=== PATIENT | female | born 1960 | race Caucasian/White ===

== ENCOUNTER 2020-11-28 10:39 | Emergency (ER) | payer OTHER, SELFPAY ==
--- NOTE | 2020-11-28 10:43 | ED.GENADULT ---
HPI - General Adult General Chief complaint: Dizziness Stated complaint: dizzy/nausea/[place] Time Seen by Provider: 11/28/20 10:55 Source: patient and RN notes reviewed Mode of arrival: ambulatory Limitations: no limitations History of Present Illness HPI narrative: 60-year-old female presents with concern for dizziness associated with nausea that started this morning. Reports dizziness is elicited by movement of her head, turning of the head, sitting up from a lying position. Reports she began to get a mild headache this morning after the dizziness began. Denies any thunderclap headache, weakness in any extremity, and numbness or tingling in any extremity, difficulty swallowing, difficulty speaking. Denies fever. MD complaint: Headache Related Data Home Medications Medication Instructions Recorded Confirmed atorvastatin 20 mg PO DAILY 11/28/20 11/28/20 hydrochlorothiazide 12.5 mg PO DAILY 11/28/20 11/28/20 lamotrigine 100 mg PO BID 11/28/20 11/28/20 lurasidone [Latuda] 20 mg PO DAILY 11/28/20 11/28/20 metformin 500 mg PO DAILY 11/28/20 11/28/20 omeprazole 40 mg PO DAILY 11/28/20 11/28/20 Allergies Allergy/AdvReac Type Severity Reaction Status Date / Time Penicillins Allergy Mild Rash Unverified 01/14/16 17:55 carbamazepine Allergy Unknown Hives Verified 11/28/20 11:00 penicillin G Allergy Unknown Hives Verified 11/28/20 11:00 phenobarbital Allergy Unknown Hives Verified 11/28/20 11:00 phenytoin Allergy Unknown Hives Verified 11/28/20 11:00 Sulfa (Sulfonamide Allergy Unknown Hives Verified 11/28/20 11:00 Antibiotics) hydromorphone AdvReac Unknown N/V Unverified 01/14/16 17:55 Review of Systems Review of Systems: Narrative: CONSTITUTIONAL: Denies malaise, chills, sweats, or fever. EYES: Denies visual changes, redness, or discharge. ENT: Denies rhinorrhea, congestion, sinus pain, otalgia or sore throat. CARDIOVASCULAR: Denies chest pain, palpitations, or edema. RESPIRATORY: Denies cough or dyspnea. GASTROINTESTINAL: Denies abdominal pain, vomiting, diarrhea. Reports nausea MUSCULOSKELETAL: Denies back pain or myalgia. NEUROLOGIC: Denies numbness, weakness. Reports positional dizziness and headache. All systems reviewed & are unremarkable except as noted in HPI and below [facility] Family History Family History (Updated 03/03/16 @ 23:19 by DOCTOR UNKNOWN) Mother Familial primary pulmonary hypertension Family history of diabetes mellitus in first degree relative Family history of malignant neoplasm of breast in first degree relative Sibling Carcinoma of colon Family history of diabetes mellitus in first degree relative Social History Social History Smoking status: Never smoker Alcohol intake: never Comments At time of signature, agree with nursing past medical, surgical, social and family history. There is no relevant family history pertinent to the presenting complaint Exam Narrative: Exam Narrative: GENERAL: Well-appearing, well-nourished, and in no acute distress. HEAD: Normocephalic, atraumatic. EYES: PERRLA, conjunctivae clear, and EOMI. no nystagmus ENT: Nares clear, turbinates pink, no rhinorrhea or epistaxis. Mucous membranes moist. TM pearly hankins with sharp light reflex bilaterally; no tragal tenderness. Oropharynx without erythema or lesions. Tonsils not enlarged and without exudate. NECK: Supple. No lymphadenopathy. No jugular venous distension, thyromegaly, or carotid bruits. Carotids were easily palpable bilaterally. CHEST: No respiratory distress. Speaks in full sentences. HEART: Regular rate and rhythm. EXTREMITIES: Normal range of motion. No edema. Normal strength and sensation. SKIN: Warm, dry, no rash. NEURO: Alert and oriented x3. No focal deficits. Cranial nerves II through XII grossly intact. No nystagmus elicited with Rosemarie-Hallpike test, however dizziness elicited with rapid head movement and sitting up from a lying position PSYCH: Normal mood and affect Course Course Emergency C
[2020-11-28 10:44] VITALS: BP 143/61; PULSE 80; RESP 16; TEMP 36.4; O2SAT 100
[2020-11-28 10:57] VITALS: BP 143/61; PULSE 80; RESP 16; TEMP 36.4; O2SAT 100
== END 2020-11-28 11:10 | disposition home or self-care (01) ==
PROVIDERS: Emergency Provider Nurse Practitioner; PCP Family Medicine
DX: H81.10 Benign paroxysmal vertigo, unspecified ear (principal); E78.00 Pure hypercholesterolemia, unspecified; Z98.84 Bariatric surgery status; F32.9 Major depressive disorder, single episode, unspecified; R73.03 Prediabetes; G40.909 Epilepsy, unspecified, not intractable, without status epilepticus
CPT/HCPCS: 99213; G0463

== ENCOUNTER 2022-02-05 13:26 | Emergency (ER) | payer OTHER, SELFPAY ==
[2022-02-05 13:36] VITALS: BP 123/63; PULSE 70; RESP 16; TEMP 37.2; O2SAT 100
--- NOTE | 2022-02-05 13:44 | ED.FEMALEGU ---
HPI - Female Genitourinary General Chief complaint: Urogenital-Female Stated complaint: Urinary Problem Source: patient and RN notes reviewed Mode of arrival: ambulatory Limitations: no limitations History of Present Illness HPI Narrative: 61-year-old female presented for complaint of urinary urgency, frequency and burning with urination for about 2 days. She denies associated abdominal pain, nausea, vomiting, flank pain, fevers or chills. She has not taken anything for symptoms. She denies frequent UTIs. Related Data Home Medications Medication Instructions Recorded Confirmed atorvastatin 20 mg tablet 20 mg PO DAILY 11/28/20 02/05/22 hydrochlorothiazide 12.5 mg tablet 12.5 mg PO DAILY 11/28/20 02/05/22 lamotrigine 100 mg tablet 100 mg PO BID 11/28/20 02/05/22 lurasidone 20 mg tablet (Latuda) 20 mg PO DAILY 11/28/20 02/05/22 metformin 500 mg tablet,extended 500 mg PO DAILY 11/28/20 02/05/22 release 24 hr omeprazole 40 mg capsule,delayed 40 mg PO DAILY 11/28/20 02/05/22 release buspirone 30 mg tablet 30 mg PO BID 08/30/21 02/05/22 fluoxetine 10 mg capsule (Prozac) 10 mg PO DAILY 08/30/21 02/05/22 Allergies Allergy/AdvReac Type Severity Reaction Status Date / Time Penicillins Allergy Mild Rash Verified 02/05/22 13:43 carbamazepine Allergy Unknown Hives Verified 02/05/22 13:43 penicillin G Allergy Unknown Hives Verified 02/05/22 13:43 phenobarbital Allergy Unknown Hives Verified 02/05/22 13:43 phenytoin Allergy Unknown Hives Verified 02/05/22 13:43 Sulfa (Sulfonamide Allergy Unknown Hives Verified 02/05/22 13:43 Antibiotics) hydromorphone AdvReac Unknown N/V Verified 02/05/22 13:43 Review of Systems Review of Systems: CONSTITUTIONAL: Denies body aches, fever, chills, or sweats. CARDIOVASCULAR: Denies chest pain, palpitations, or edema. RESPIRATORY: Denies cough or dyspnea. GASTROINTESTINAL: Denies abdominal pain, nausea, vomiting, or diarrhea. GENITOURINARY: Reports dysuria, frequency, urgency,denies hematuria, flank pain SKIN: Denies rash, itching, or wounds. MUSCULOSKELETAL: Denies back pain or myalgia. 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/[address] Mendoza History of hysterectomy, supracervical 02/28/06 w/adhesiolysis History of plastic surgery 11/04/14 arm lift/skin removal Family History Family History Mother Familial primary pulmonary hypertension Family history of diabetes mellitus in first degree relative Family history of malignant neoplasm of breast in first degree relative Breast cancer Sibling Carcinoma of colon brother Family history of diabetes mellitus in first degree relative sister brother Hypertension sister brother Social History Social History Smoking status: Never smoker Alcohol intake: never Substance use: never Substance use type: does not use Additional living arrangements comments: spouse 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 Please see nursing chart for further inform
== END 2022-02-05 14:02 | disposition home or self-care (01) ==
PROVIDERS: Emergency Provider Nurse Practitioner Family
DX: N39.0 Urinary tract infection, site not specified (principal); E11.9 Type 2 diabetes mellitus without complications; I10 Essential (primary) hypertension; F41.9 Anxiety disorder, unspecified; F32.9 Major depressive disorder, single episode, unspecified
CPT/HCPCS: 81003; 87077; 87086; 87186; 99213; G0463

== ENCOUNTER 2024-10-18 18:06 | Emergency (ER) | payer OTHER, SELFPAY ==
[2024-10-18 18:26] VITALS: BP 144/83; PULSE 68; RESP 14; TEMP 37.1; O2SAT 100
[2024-10-18 18:38] LABS: EDUAAPPEAR Cloudy; EDUABILI Negative (Negative); EDUABLOOD 2+ (Negative); EDUACOLOR1 Yellow; EDUAGLUCOSE Negative (Negative); EDUAKETONE Negative (Negative); EDUALEUKO 1+ (Negative); EDUANITRATE Positive (Negative); EDUAPH 5.5; EDUAPROTEIN Trace (Negative); EDUAUROBILI 0.2
--- NOTE | 2024-10-18 18:41 | ED_ITS ---
HPI - Female Genitourinary General Chief complaint: Urogenital-Female Stated complaint: bladder inf Source: patient and RN notes reviewed Mode of arrival: ambulatory Limitations: no limitations History of Present Illness HPI Narrative: 63 y/o female presented for c/o burning with urination and frequency. Onset today. Denies hematuria, nausea, vomiting, abdominal pain, flank pain, constipation, diarrhea, fevers or chills. Related Data Home Medications ?Medication ?Instructions ?Recorded ?Confirmed ?Last Taken ?Type atorvastatin 20 mg tablet 20 mg PO DAILY 11/28/20 09/18/22 Unknown History omeprazole 40 mg capsule,delayed 40 mg PO DAILY 11/28/20 10/15/24 Unknown History release buspirone 30 mg tablet 30 mg PO BID 08/30/21 10/15/24 Unknown History fluoxetine 10 mg capsule (Prozac) 10 mg PO DAILY 08/30/21 10/15/24 Unknown History semaglutide 0.25 mg or 0.5 mg (2 0.5 mg subcut WEEKLY 10/15/24 10/15/24 Unknown History mg/3 mL) subcutaneous pen injector (Ozempic) Allergies Allergy/AdvReac Type Severity Reaction Status Date / Time Penicillins Allergy Mild Rash Verified 10/15/24 10:54 carbamazepine Allergy Unknown Hives Verified 10/15/24 10:54 penicillin G Allergy Unknown Hives Verified 10/15/24 10:54 phenobarbital Allergy Unknown Hives Verified 10/15/24 10:54 phenytoin Allergy Unknown Hives Verified 10/15/24 10:54 Sulfa (Sulfonamide Allergy Unknown Hives Verified 10/15/24 10:54 Antibiotics) hydromorphone AdvReac Unknown N/V Verified 10/15/24 10:54 Review of Systems Review of Systems: CONSTITUTIONAL: Denies body aches, fever, chills, or sweats. CARDIOVASCULAR: Denies chest pain, palpitations, or edema. RESPIRATORY: Denies cough or dyspnea. GASTROINTESTINAL: Denies abdominal pain, nausea, vomiting, or diarrhea. GENITOURINARY: Reports dysuria, frequency, denies urgency, hematuria, flank pain SKIN: Denies rash, itching, or wounds. MUSCULOSKELETAL: Denies back pain or myalgia. 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/07/[address] Mendoza H/O abdominoplasty 10/2014 History of plastic surgery 11/04/14 arm lift/skin removal History of breast lift 10/2014 w/augmentation Family History Family History Mother Familial primary pulmonary hypertension Family history of diabetes mellitus in first degree relative Family history of malignant neoplasm of breast in first degree relative Breast cancer Sibling Carcinoma of colon brother Family history of diabetes mellitus in first degree relative sister brother Hypertension sister brother Social History Social History (Updated 10/15/24 @ 11:03 by ALFONSO Cheng) Smoking status: Never smoker Alcohol intake: never Substance use: never Substance use type: does not use Do You Feel Safe in your Home?: Yes Lack of Transportation: No Lack of Food: Never True Current Housing: I Have Housing Concerned About Future Housing: No Difficulty Paying Gas/Electric Bills: No Difficulty Paying for Meds: No Currently Unemployed: No Education: High School Diploma/GED Difficulty w/ Childcare or Family Care: No Living arrangements: with family Additional living arrangements comments: spouse Occupation/Education: retired 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 Please see nursing chart for further information. There is no relevant family history pertinent to the presenting complaint Exam Narrative: GENERAL: Well-appearing ENT: Mucous membranes pink and moist. NECK: Normal AROM. Supple. CHEST: No respiratory distress. Clear to auscultation. HEART: Regular rate and rhythm. ABDOMEN: Soft, nontender, nondistended, normal active bowel sounds. No CVA tenderness SKIN: Warm, dry, no rash. NEURO: No focal deficits. Alert and oriented x3. Gait steady. PSYCH: Normal affect. Course Course Emergency Course: Patient is aware of diagnosis, understands and agrees to treatment plan. Anticipatory guidance given. Patient agrees to follow-up as directed and is aware of reasons to seek care at the emergency department. Portions of this record may have been created with voice recognition software Level of Care: Express Care Visit Vital Signs Vital signs: Vital Signs Temperature 98.7 F 10/18/24 18:26 Pulse Rate 68 10/18/24 18:26 Respiratory Rate 14 10/18/24 18:26 Blood Pressure 144/83 H 10/18/24 18:26 Pulse Oximetry 100 10/18/24 18:26 Oxygen Delivery Room Air 10/18/24 18:26 Temperature 98.7 F 10/18/24 18:26 Pulse Rate 68 10/18/24 18:26 Respiratory Rate 14 10/18/24 18:26 Blood Pressure 144/83 H 10/18/24 18:26 Pulse Oximetry 100 10/18/24 18:26 Oxygen Delivery Room Air 10/18/24 18:26 Reviewed MDM - Female Genitourinary MDM Narrative Medical decision making narrative: Discussed physical exam findings and urine dip. Advised supportive measures and signs/symptoms to go to the ER. Pt is appropriate for outpt treatment and f/u. Differential Diagnosis Differential diagnosis: Likely urinary tract infection, vaginitis and cystitis Lab Data Labs: Lab Results 10/18/24 Range/Units 18:36 POC Urine Color Yellow POC Urine Clarity Cloudy POC Urine pH 5.5 POC Ur Specif [place] 1.030 POC Urine Protein Trace (Negative) POC Ur Glucose (UA) Negative (Negative) POC Urine Ketones Negative (Negative) POC Urine Blood 2+ (Negative) POC Urine Nitrite Positive (Negative) POC Urine Bilirubin Negative (Negative) POC Urine Urobilinogen 0.2 POC U Leukocyte Esteras 1+ (Negative) Discharge Plan Discharge Clinical Impression: UTI (urinary tract infection) Patient Disposition: Home, Self-Care Condition: Stable Instructions: Antibiotic Form, Urinary Tract Infection in Women (ED) Additional Instructions: Take the antibiotic as prescribed The urine will be sent of for a culture to identify what type of bacteria is causing your infection. If the culture shows that the antibiotic will not get rid of your infection, you will be notified and a new antibiotic will be called in for you. Increase water intake you will need to follow up with your PCP, call to schedule an appointment. Go to the ER for any worsening symptoms or concerns Patient Language: Fijian Prescriptions: New nitrofurantoin monohyd/m-cryst [Macrobid] 100 mg capsule 100 mg PO Q12H 5 Days Qty: 10 0RF Rx Instructions: must administer with a meal/food No Action atorvastatin 20 mg tablet 20 mg PO DAILY omeprazole 40 mg capsule,delayed release(DR/EC) 40 mg PO DAILY buspirone 30 mg tablet 30 mg PO BID fluoxetine [Prozac] 10 mg capsule 10 mg PO DAILY Ozempic 0.25 mg or 0.5 mg (2 mg/3 mL) pen injector 0.5 mg subcut WEEKLY Rx Instructions: for 4 weeks Follow-up/Referrals: Edson,STEPHON Lindsay [Primary Care Provider] - Time of Disposition: 18:45
== END 2024-10-18 18:46 | disposition home or self-care (01) ==
PROVIDERS: Emergency Provider Nurse Practitioner Family; PCP Physician Assistant
DX: N39.0 Urinary tract infection, site not specified (principal); B96.20 Unspecified Escherichia coli [E. coli] as the cause of diseases classified elsewhere; E11.9 Type 2 diabetes mellitus without complications; I10 Essential (primary) hypertension; M34.9 Systemic sclerosis, unspecified; R12 Heartburn; F41.9 Anxiety disorder, unspecified; F32.A Depression, unspecified
CPT/HCPCS: 81003; 87086; 87186; 99213; G0463